=== PATIENT | female | born 1965 ===

== ENCOUNTER 2019-06-02 04:24 | Inpatient (IN) ==
[~2019-06-02 04:24] MED LIST: HEPARIN/NACL 0.9% 2 UNITS/ML 1,000 ML IV ONE; LIDOCAINE 1% 20 ML VIAL ONE; MIDAZOLAM 2 MG/2 ML VIAL ONE; fentaNYL 100 MCG/2 ML VIAL ONE
[2019-06-02] MEDS ORDERED: ENOXAPARIN 60 MG/0.6 ML SYRINGE ONE (04:34)
[2019-06-02] MEDS ORDERED: TIROFIBAN 5,000 MCG/100 ML PREMIX IV ONE (04:51)
[2019-06-02] MEDS ORDERED: TIROFIBAN 5,000 MCG/100 ML PREMIX IV SCH ×2 (04:56→05:30)
[2019-06-02] MEDS ORDERED: ZALEPLON 5 MG CAPSULE PO PRN (05:10)
[2019-06-02] MEDS ORDERED: ONDANSETRON 4 MG/2 ML VIAL IV PRN (05:10)
[2019-06-02] MEDS ORDERED: MORPHINE 4 MG/1 ML VIAL IV PRN (05:10)
[2019-06-02] MEDS ORDERED: NITROGLYCERIN SL 0.4 MG TABLET SL PRN (05:10)
[2019-06-02] MEDS ORDERED: ACETAMINOPHEN 325 MG TABLET PO PRN (05:10)
[2019-06-02] MEDS ORDERED: GLUCAGON 1 MG VIAL IM PRN (05:28)
[2019-06-02] MEDS ORDERED: DEXTROSE 50% 25 GM/50 ML VIAL IV PRN (05:28)
[2019-06-02] MEDS ORDERED: SODIUM CHLORIDE 0.9% 1,000 ML IV SCH ×2 (05:30→17:30)
[2019-06-02 06:23] LABS: Basophils % 0.4 % (0.0-0.8); Eosinophils # 0.1 10*3/uL (0.0-0.87); Eosinophils % 1.7 % (0.00-10.9); Hematocrit 34.3 VOL% (35.7-47.0); Hemoglobin 11.5 GM/DL (12.0-16.0); Immature Granulocytes % 0.6 %; Immature Granulocytes Absolute 0.05 #; Lymphocytes # 2.7 10*3/uL (1.4-4.0); Lymphocytes % 33.4 % (21.3-54.2); Mean Corpuscular HGB Conc 33.5 GM/DL (32-36); Mean Corpuscular Volume 91.2 FL (87-102); Monocytes % 8.4 % (1.7-12.7); Neutrophils % 55.5 % (38.7-73.9); Platelet Count 206 T/CUMM (130-400); Red Blood Count 3.76 MC/CUMM (3.8-5.5); White Blood Count 8.2 T/CUMM (4-12)
[2019-06-02] MEDS: hydrALAZINE 20 MG/1 ML VIAL IV PRN ×2 (06:40→11:53)
[2019-06-02 07:16] LABS: Risk Ratio 3.92; VLDL CHOLESTEROL 25.8 MG/DL
[2019-06-02] MEDS: CARVEDILOL 3.125 MG TABLET PO SCH ×2 (08:09→17:16)
[2019-06-02] MEDS: PANTOPRAZOLE 40 MG TABLET PO SCH (08:09)
[2019-06-02] MEDS: ASPIRIN EC 81 MG TABLET PO SCH (08:09)
[2019-06-02] MEDS: INSULIN REGULAR 100 UNIT/ML SUBCUT SCH ×4 (08:09→21:50)
[2019-06-02 08:43] LABS: Calcium 8.3 MG/DL (8.5-10.1); Osmolality,Calculated 286.5 MOS/KG (273-304)
[2019-06-02] MEDS ORDERED: LOSARTAN 25 MG TABLET PO SCH (09:00)
[2019-06-02 11:53] LABS: PT Patient Result 10.6 SECS
[2019-06-02] MEDS ORDERED: NITROGLYCERIN DRIP 50 MG/250 ML BOTTLE IV PRN (11:54)
[2019-06-02] MEDS: HEPARIN DRIP 25,000 UNITS/500 ML PREMIX IV SCH (12:30)
[2019-06-02 12:34] LABS: Apearance,Urine CLEAR (Clear); Bilirubin,Urine Negative (Negative); Blood, Urine Small mg/dL (Negative); Glucose,Urine (UA) >=500 mg/dL (Negative); Ketones,Urine Negative (Negative); Mucus,Urine Occasional /LPF (Occasional); Nitrite,Urine Negative (Negative); Protein,Urine 100 MG/DL; RBC,Urine 3 /HPF (0-4); Squamous Epithelial Cell,Urine Occasional /HPF (0-10); Urine Color Straw (Yellow); Urine Urobilinogen < 2.0 EU/DL (0.2-1.0); WBC,Urine <1 /HPF (0-6)
[2019-06-02] MEDS: CHLORHEXIDINE 4% SOLN 118 ML BOTTLE TOP SCH ×2 (16:17→21:22)
[2019-06-02] MEDS ORDERED: ATORVASTATIN 80 MG TABLET PO SCH (21:00)
[2019-06-02] MEDS: SODIUM CHLORIDE 0.9% 1,000 ML IV SCH (21:22)
[2019-06-02] MEDS ORDERED: DIAZEPAM 5 MG TABLET PO PRN (21:28)
[2019-06-02] MEDS: CHLORHEXIDINE 0.12% ORAL RINSE 60 ML BOTTLE SWISH/SPIT SCH (21:50)
[2019-06-03] MEDS ORDERED: PAPAVERINE 60 MG/2 ML VIAL ONE (05:43)
[2019-06-03] MEDS ORDERED: VANCOMYCIN 1,000 MG VIAL ONE (05:44)
[2019-06-03] MEDS ORDERED: TISSUE ADHESIVE 1 EACH APPLICATOR TOP ONE (05:44)
[2019-06-03] MEDS: CHLORHEXIDINE 4% SOLN 118 ML BOTTLE TOP SCH ×2 (05:45→09:03)
[2019-06-03 05:49] LABS: Basophils % 0.3 % (0.0-0.8); Eosinophils # 0.1 10*3/uL (0.0-0.87); Eosinophils % 1.1 % (0.00-10.9); Hematocrit 32.8 VOL% (35.7-47.0); Immature Granulocytes % 0.1 %; Immature Granulocytes Absolute 0.01 #; Lymphocytes # 2.6 10*3/uL (1.4-4.0); Lymphocytes % 34.7 % (21.3-54.2); Mean Corpuscular HGB Conc 33.5 GM/DL (32-36); Mean Corpuscular Volume 92.1 FL (87-102); Mean Platelet Volume 10.6 FL (9.6-12.0); Monocytes % 8.7 % (1.7-12.7); Neutrophils % 55.1 % (38.7-73.9); Platelet Count 190 T/CUMM (130-400); Red Blood Count 3.56 MC/CUMM (3.8-5.5); Red Cell Distribution Width 12.5 % (9.3-17.3); White Blood Count 7.6 T/CUMM (4-12)
[2019-06-03] MEDS ORDERED: CEFUROXIME INJ 1,500 MG in SYRINGE 1 EACH IV ONE (06:00)
[2019-06-03 06:23] LABS: Calcium 8.3 MG/DL (8.5-10.1); Osmolality,Calculated 284.3 MOS/KG (273-304)
[2019-06-03] MEDS ORDERED: METOPROLOL TARTRATE 5 MG/5 ML VIAL IV ONE ×2 (06:56→06:58)
[2019-06-03] MEDS: hydrALAZINE 20 MG/1 ML VIAL IV PRN (06:58)
[2019-06-03] MEDS ORDERED: DIAZEPAM 5 MG TABLET PO ONE (08:00)
[2019-06-03] MEDS ORDERED: FAMOTIDINE 20 MG TABLET PO ONE (08:00)
[2019-06-03] MEDS: INSULIN REGULAR 100 UNIT/ML SUBCUT SCH ×2 (09:00→16:41)
[2019-06-03] MEDS: CARVEDILOL 3.125 MG TABLET PO SCH (09:03)
[2019-06-03] MEDS: ASPIRIN EC 81 MG TABLET PO SCH (09:03)
[2019-06-03] MEDS: PANTOPRAZOLE 40 MG TABLET PO SCH (09:03)
[2019-06-03] MEDS: CHLORHEXIDINE 0.12% ORAL RINSE 60 ML BOTTLE SWISH/SPIT SCH ×2 (09:04→22:02)
[2019-06-03 11:50] LABS: ABG Base Excess -0.5 MMOL/L (-2.5-2.5); ABG PH 7.458 (7.35-7.45); ABG TCO2 20.2 MMOL/L (23-27); Glucose Heart Surgery 251 MG/DL (74-106); Hematocrit Heart Surgery 33.8 PERCENT (37-47); Hemoglobin Heart Surgery 10.9 G/DL (12.0-16.0); Ionized Calcium Arterial 1.13 MMOL/L (1.21-1.46); PH Patient Temp Arterial 7.458; Patient Temperature 37 CELCIUS; Potassium Heart/CVR 3.4 MMOL/L (3.5-5.1); Sodium Heart/CVR 138 MMOL/L (135-145)
[2019-06-03] MEDS ORDERED: INSULIN REGULAR 100 UNIT/ML ONE (12:01)
[2019-06-03 13:07] LABS: Hemoglobin Heart Surgery 6.8 G/DL (12.0-16.0); PCO2 Patient Temp Venous 27.4 MM HG; PH Patient Temp Venous 7.521; PO2 Patient Temp Venous 49.7 MM HG; VBG Base Excess -0.7 MEQ/L (0-4); VBG HCO3 21.9 MEQ/L (24-28); VBG Oxygen Saturation 83.6 %; VBG PCO2 27.4 MMHG (41-51); VBG PH 7.521; VBG PO2 49.7 MMHG (17-40)
[2019-06-03] MEDS ORDERED: EPINEPHrine 1 MG/10 ML SYRINGE ONE (13:36)
[2019-06-03] MEDS ORDERED: ALBUMIN 5% 12.5 GM/250 ML VIAL IV ONE (13:36)
[2019-06-03] MEDS ORDERED: PHENYLEPHRINE DRIP 0 MG/0 ML PREMIX IV ONE (13:36)
[2019-06-03] MEDS ORDERED: ATROPINE 1 MG/10 ML SYRINGE ONE (13:37)
[2019-06-03] MEDS ORDERED: POTASSIUM CHLORIDE RIDER 100 ML IV ONE (13:37)
[2019-06-03] MEDS ORDERED: LIDOCAINE 100 MG/5 ML SYRINGE ONE (13:37)
[2019-06-03 13:40] LABS: Glucose Heart Surgery 315 MG/DL (74-106); PCO2 Patient Temp Venous 31.4 MM HG; PH Patient Temp Venous 7.527; PO2 Patient Temp Venous 58.3 MM HG; Patient Temperature 37 CELCIUS; Potassium Heart/CVR 3.5 MMOL/L (3.5-5.1); Sodium Heart/CVR 131 MMOL/L (135-145); VBG Base Excess 2.6 MEQ/L (0-4); VBG HCO3 25.5 MEQ/L (24-28); VBG Oxygen Saturation 88.9 %; VBG PCO2 31.4 MMHG (41-51); VBG PH 7.527; VBG PO2 58.3 MMHG (17-40)
[2019-06-03] MEDS ORDERED: SODIUM BICARBONATE 50 MEQ/50 ML VIAL IV ONE (14:21)
[2019-06-03] MEDS ORDERED: methylPREDNISolone SOD SUC 1,000 MG/8 ML VIAL ONE (14:21)
[2019-06-03] MEDS ORDERED: ALBUMIN 25% 25 GM/100 ML VIAL IV ONE (14:21)
[2019-06-03] MEDS ORDERED: MAGNESIUM SULFATE 5 GM/10 ML VIAL IV ONE (14:21)
[2019-06-03] MEDS ORDERED: HEPARIN 10,000 UNIT/10 ML VIAL ONE (14:21)
[2019-06-03] MEDS ORDERED: PROTAMINE SULFATE 250 MG/25 ML VIAL IV ONE (14:21)
[2019-06-03] MEDS ORDERED: DEXTROSE 5% KCL 20 MEQ 20 MEQ/1,000 ML BAG IV ONE (14:21)
[2019-06-03] MEDS ORDERED: MANNITOL 12.5 GM/50 ML VIAL IV ONE (14:22)
[2019-06-03] MEDS ORDERED: FUROSEMIDE 20 MG/2 ML VIAL ONE (14:22)
[2019-06-03] MEDS ORDERED: PROTAMINE SULFATE 50 MG/5 ML VIAL IV ONE (14:22)
[2019-06-03] MEDS ORDERED: THROMBIN TOPICAL (RECOMBINANT) 5,000 UNIT VIAL TOP ONE (14:27)
[2019-06-03 14:41] LABS: ABG Base Excess 0.5 MMOL/L (-2.5-2.5); ABG HCO3 21.4 MMOL/L (20-26); ABG Oxygen Saturation 98.7 % (95-100); ABG PCO2 22.8 MM HG (35-48); ABG PO2 303.1 MM HG (80-95); ABG TCO2 22.1 MMOL/L (23-27); Glucose Heart Surgery 330 MG/DL (74-106); Hemoglobin Heart Surgery 8.9 G/DL (12.0-16.0); Ionized Calcium Arterial 1.26 MMOL/L (1.21-1.46); PCO2 Patient Temp Arterial 22.8 MMHG; PH Patient Temp Arterial 7.591; PO2 Patient Temp Arterial 303.1 MM HG; Patient Temperature 37 CELCIUS; Potassium Heart/CVR 3.5 MMOL/L (3.5-5.1); Sodium Heart/CVR 133 MMOL/L (135-145)
[2019-06-03 14:50] LABS: ABG PH 7.591 (7.35-7.45)
[2019-06-03] MEDS: SODIUM CHLORIDE 0.45% 1,000 ML IV SCH (15:30)
[2019-06-03] MEDS ORDERED: CALCIUM CHLORIDE 1,000 MG/10 ML VIAL IV ONE (15:51)
[2019-06-03] MEDS ORDERED: SUFentanil 250 MCG/5 ML AMP ONE (15:51)
[2019-06-03] MEDS ORDERED: PHENYLEPHRINE DRIP 20 MG/250 ML PREMIX IV ONE (15:51)
[2019-06-03] MEDS ORDERED: HEPARIN/NACL 0.9% 2 UNITS/ML 500 ML IV ONE (15:51)
[2019-06-03] MEDS ORDERED: ePHEDrine 50 MG/ML AMP ONE (15:52)
[2019-06-03] MEDS ORDERED: ETOMIDATE 40 MG/20 ML VIAL IV ONE (15:52)
[2019-06-03] MEDS ORDERED: MIDAZOLAM 10 MG/2 ML VIAL ONE (15:52)
[2019-06-03] MEDS ORDERED: AMINOCAPROIC ACID 5,000 MG/20 ML VIAL ONE (15:52)
[2019-06-03] MEDS ORDERED: NITROGLYCERIN DRIP 50 MG/250 ML BOTTLE IV ONE (15:52)
[2019-06-03] MEDS ORDERED: DEXTROSE 50% 25 GM/50 ML VIAL IV PRN ×2 (15:53)
[2019-06-03] MEDS ORDERED: SODIUM CHLORIDE 0.9% 250 ML IV PRN (15:53)
[2019-06-03] MEDS ORDERED: MAGNESIUM SULF RIDER 4 GM in PREMIX 1 EACH IV PRN (15:53)
[2019-06-03] MEDS ORDERED: ACETAMINOPHEN 650 MG SUPP RECTAL PRN (15:53)
[2019-06-03] MEDS ORDERED: MIDAZOLAM 2 MG/2 ML VIAL IV PRN (15:53)
[2019-06-03] MEDS ORDERED: CHLORHEXIDINE 4% SOLN 118 ML BOTTLE TOP PRN (15:53)
[2019-06-03] MEDS ORDERED: CALCIUM CHLORIDE 1,000 MG/10 ML SYRINGE IV PRN (15:53)
[2019-06-03] MEDS ORDERED: SODIUM CHLORIDE 0.45% 1,000 ML IV SCH (15:53)
[2019-06-03] MEDS ORDERED: MORPHINE 10 MG/1 ML VIAL IV PRN (15:53)
[2019-06-03] MEDS ORDERED: INSULIN REGULAR DRIP 100 ML IV SCH (15:53)
[2019-06-03] MEDS: ALBUMIN 5% 12.5 GM in PREMIX 1 EACH IV PRN ×4 (16:16→17:41)
[2019-06-03 16:18] LABS: ABG Base Excess -0.2 MMOL/L (-2.5-2.5); ABG HCO3 24.2 MMOL/L (20-26); ABG Oxygen Saturation 98.5 % (95-100); ABG PCO2 29.8 MM HG (35-48); ABG PH 7.483 (7.35-7.45); ABG TCO2 19.9 MMOL/L (23-27); Glucose Heart Surgery 346 MG/DL (74-106); Hematocrit Heart Surgery 34.4 PERCENT (37-47); Hemoglobin Heart Surgery 11.2 G/DL (12.0-16.0); Potassium Heart/CVR 3.2 MMOL/L (3.5-5.1)
[2019-06-03 16:20] LABS: Basophils % 0.2 % (0.0-0.8); Eosinophils % 0.3 % (0.00-10.9); Hematocrit 31.2 VOL% (35.7-47.0); Hemoglobin 10.4 GM/DL (12.0-16.0); Immature Granulocytes % 0.7 %; Immature Granulocytes Absolute 0.06 #; Lymphocytes % 10.8 % (21.3-54.2); Mean Corpuscular HGB Conc 33.3 GM/DL (32-36); Mean Corpuscular Volume 92.6 FL (87-102); Mean Platelet Volume 10.2 FL (9.6-12.0); Monocytes % 4.1 % (1.7-12.7); Neutrophils % 83.9 % (38.7-73.9); Platelet Count 112 T/CUMM (130-400); Red Blood Count 3.37 MC/CUMM (3.8-5.5); Red Cell Distribution Width 12.4 % (9.3-17.3); White Blood Count 9.1 T/CUMM (4-12)
[2019-06-03] MEDS: POTASSIUM CHLORIDE RIDER 20 MEQ in PREMIX 1 EACH IV PRN ×3 (16:27→18:23)
[2019-06-03 16:31] LABS: INR 1.1; PT Patient Result 12.3 SECS; Partial Thromboplastin Time 25.2 SECS (0-40)
[2019-06-03] MEDS ORDERED: ASPIRIN CHEW 81 MG TABLET PO ONE (16:33)
[2019-06-03] MEDS ORDERED: SODIUM CHLORIDE 0.9% 1,000 ML IV PRN (16:36)
[2019-06-03] MEDS: HEPARIN DRIP 25,000 UNITS/500 ML PREMIX IV SCH (16:40)
[2019-06-03] MEDS: SODIUM CHLORIDE 0.9% 1,000 ML IV SCH (16:41)
[2019-06-03 16:42] LABS: Blood Urea Nitrogen 15 MG/DL (7-18); Calcium 8.9 MG/DL (8.5-10.1); Glucose 335 MG/DL (74-106)
[2019-06-03] MEDS: LACTATED RINGERS 1,000 ML IV PRN ×3 (16:54→18:24)
[2019-06-03] MEDS: MAGNESIUM SULF RIDER 2 GM in PREMIX 1 EACH IV PRN (17:36)
[2019-06-03 18:13] LABS: ABG Base Excess -0.1 MMOL/L (-2.5-2.5); ABG HCO3 24.3 MMOL/L (20-26); ABG Oxygen Saturation 99.4 % (95-100); ABG PCO2 26.7 MM HG (35-48); ABG PH 7.524 (7.35-7.45); ABG TCO2 20.4 MMOL/L (23-27); Glucose Heart Surgery 294 MG/DL (74-106); Hematocrit Heart Surgery 25.8 PERCENT (37-47); Hemoglobin Heart Surgery 8.3 G/DL (12.0-16.0); Potassium Heart/CVR 3.8 MMOL/L (3.5-5.1)
[2019-06-03] MEDS: INSULIN REGULAR 100 UNIT/ML IV PRN ×2 (18:18→20:15)
[2019-06-03] MEDS: POTASSIUM CHLORIDE RIDER 10 MEQ in PREMIX 1 EACH IV PRN (18:49)
[2019-06-03] MEDS: CEFUROXIME INJ 1,500 MG in SYRINGE 1 EACH IV SCH (23:19)
[2019-06-04] MEDS: INSULIN REGULAR 100 UNIT/ML IV PRN (00:09)
[2019-06-04] MEDS: MORPHINE 4 MG/1 ML VIAL IV PRN ×4 (00:36→15:10)
[2019-06-04 04:03] LABS: ABG Base Excess 0.1 MMOL/L (-2.5-2.5); ABG HCO3 24.6 MMOL/L (20-26); ABG Oxygen Saturation 98.9 % (95-100); ABG PCO2 40.1 MM HG (35-48); ABG TCO2 22.6 MMOL/L (23-27); Glucose Heart Surgery 121 MG/DL (74-106); Hematocrit Heart Surgery 31.2 PERCENT (37-47); Hemoglobin Heart Surgery 10.1 G/DL (12.0-16.0); Potassium Heart/CVR 3.4 MMOL/L (3.5-5.1)
[2019-06-04 04:12] LABS: Basophils % 0.2 % (0.0-0.8); Hematocrit 24.4 VOL% (35.7-47.0); Immature Granulocytes % 0.5 %; Immature Granulocytes Absolute 0.07 #; Lymphocytes # 0.6 10*3/uL (1.4-4.0); Lymphocytes % 4.7 % (21.3-54.2); Mean Corpuscular HGB Conc 32.8 GM/DL (32-36); Mean Corpuscular Volume 93.1 FL (87-102); Mean Platelet Volume 10.6 FL (9.6-12.0); Monocytes % 4.7 % (1.7-12.7); Neutrophils % 89.9 % (38.7-73.9); Platelet Count 105 T/CUMM (130-400); Red Blood Count 2.62 MC/CUMM (3.8-5.5); Red Cell Distribution Width 12.6 % (9.3-17.3); White Blood Count 12.9 T/CUMM (4-12)
[2019-06-04 04:29] LABS: Band Neutrophils 6 % (0-10); Hypochromasia Slight; Lymphocytes 6 % (20-55); Platelet Estimate Decreased; Segmented Neutrophils 83 % (50-85); Total Cells Counted 100
[2019-06-04 04:30] LABS: Calcium 7.9 MG/DL (8.5-10.1); Osmolality,Calculated 286.8 MOS/KG (273-304)
[2019-06-04] MEDS: SODIUM CHLORIDE 0.45% 1,000 ML IV SCH (04:47)
[2019-06-04] MEDS: POTASSIUM CHLORIDE RIDER 20 MEQ in PREMIX 1 EACH IV PRN ×2 (04:51→05:20)
[2019-06-04] MEDS: MAGNESIUM SULF RIDER 2 GM in PREMIX 1 EACH IV PRN (04:51)
[2019-06-04] MEDS ORDERED: GLUCAGON 1 MG VIAL IM PRN (07:19)
[2019-06-04] MEDS ORDERED: INSULIN REGULAR 100 UNIT/ML SUBCUT SCH (08:00)
[2019-06-04] MEDS: METOPROLOL TARTRATE 25 MG TABLET PO SCH ×2 (08:21→20:57)
[2019-06-04] MEDS: CLOPIDOGREL 75 MG TABLET PO SCH (08:21)
[2019-06-04] MEDS: NICOTINE 14 MG/24 HR PATCH TRANSDERM SCH (08:21)
[2019-06-04] MEDS: PANTOPRAZOLE 40 MG VIAL IV SCH (08:22)
[2019-06-04] MEDS: CHLORHEXIDINE 0.12% ORAL RINSE 60 ML BOTTLE SWISH/SPIT SCH ×2 (08:24→21:02)
[2019-06-04] MEDS: INSULIN REGULAR 100 UNIT/ML SUBCUT SCH ×4 (10:45→22:21)
[2019-06-04] MEDS: CEFUROXIME INJ 1,500 MG in SYRINGE 1 EACH IV SCH ×2 (12:40→22:22)
[2019-06-04] MEDS: ASPIRIN EC 325 MG TABLET PO SCH (14:58)
[2019-06-04] MEDS: FUROSEMIDE 40 MG TABLET PO SCH (14:58)
[2019-06-04] MEDS ORDERED: ATORVASTATIN 40 MG TABLET PO SCH (15:14)
[2019-06-04] MEDS: ONDANSETRON 4 MG/2 ML VIAL IV PRN (18:00)
[2019-06-04] MEDS: ATORVASTATIN 80 MG TABLET PO SCH (20:58)
[2019-06-05] MEDS: INSULIN REGULAR 100 UNIT/ML SUBCUT SCH ×6 (01:09→20:17)
[2019-06-05 04:52] LABS: Basophils % 0.1 % (0.0-0.8); Hematocrit 22.6 VOL% (35.7-47.0); Hemoglobin 7.2 GM/DL (12.0-16.0); Immature Granulocytes % 0.9 %; Immature Granulocytes Absolute 0.13 #; Lymphocytes # 1.2 10*3/uL (1.4-4.0); Lymphocytes % 8.8 % (21.3-54.2); Mean Corpuscular HGB Conc 31.9 GM/DL (32-36); Mean Corpuscular Volume 95.8 FL (87-102); Mean Platelet Volume 11.4 FL (9.6-12.0); Monocytes % 6.6 % (1.7-12.7); Neutrophils % 83.6 % (38.7-73.9); Platelet Count 104 T/CUMM (130-400); Red Blood Count 2.36 MC/CUMM (3.8-5.5); Red Cell Distribution Width 12.9 % (9.3-17.3)
[2019-06-05 04:58] LABS: Calcium 7.9 MG/DL (8.5-10.1); Osmolality,Calculated 285.5 MOS/KG (273-304)
[2019-06-05] MEDS ORDERED: SODIUM CHLORIDE 0.9% 1,000 ML IV PRN (07:42)
[2019-06-05] MEDS ORDERED: FUROSEMIDE 40 MG/4 ML VIAL IV ONE (07:43)
[2019-06-05] MEDS: PANTOPRAZOLE 40 MG VIAL IV SCH (08:11)
[2019-06-05] MEDS: METOPROLOL TARTRATE 25 MG TABLET PO SCH ×2 (08:11→21:34)
[2019-06-05] MEDS: FUROSEMIDE 40 MG TABLET PO SCH (08:11)
[2019-06-05] MEDS: NICOTINE 14 MG/24 HR PATCH TRANSDERM SCH (08:11)
[2019-06-05] MEDS: ASPIRIN EC 325 MG TABLET PO SCH (08:11)
[2019-06-05] MEDS: CLOPIDOGREL 75 MG TABLET PO SCH (08:11)
[2019-06-05] MEDS: CHLORHEXIDINE 0.12% ORAL RINSE 60 ML BOTTLE SWISH/SPIT SCH ×2 (09:34→21:42)
[2019-06-05] MEDS: glyBURIDE/METFORMIN 5-500 MG TABLET PO SCH (17:00)
[2019-06-05] MEDS: ATORVASTATIN 80 MG TABLET PO SCH (21:34)
[2019-06-05] MEDS: ASCORBIC ACID 500 MG TABLET PO SCH (21:34)
[2019-06-06] MEDS: INSULIN REGULAR 100 UNIT/ML SUBCUT SCH ×6 (00:41→21:42)
[2019-06-06 05:21] LABS: Basophils % 0.2 % (0.0-0.8); Hematocrit 31.3 VOL% (35.7-47.0); Hemoglobin 10.4 GM/DL (12.0-16.0); Immature Granulocytes % 0.4 %; Immature Granulocytes Absolute 0.05 #; Lymphocytes # 1.5 10*3/uL (1.4-4.0); Lymphocytes % 11.6 % (21.3-54.2); Mean Corpuscular HGB Conc 33.2 GM/DL (32-36); Mean Corpuscular Volume 89.4 FL (87-102); Mean Platelet Volume 11.5 FL (9.6-12.0); Monocytes % 7.9 % (1.7-12.7); Neutrophils % 79.9 % (38.7-73.9); Platelet Count 124 T/CUMM (130-400); Red Cell Distribution Width 13.9 % (9.3-17.3); White Blood Count 13.3 T/CUMM (4-12)
[2019-06-06 06:03] LABS: Calcium 8.2 MG/DL (8.5-10.1); Osmolality,Calculated 280.7 MOS/KG (273-304)
[2019-06-06] MEDS: CHLORHEXIDINE 0.12% ORAL RINSE 60 ML BOTTLE SWISH/SPIT SCH ×2 (09:30→21:51)
[2019-06-06] MEDS: glyBURIDE/METFORMIN 5-500 MG TABLET PO SCH ×2 (09:31→18:14)
[2019-06-06] MEDS: NICOTINE 14 MG/24 HR PATCH TRANSDERM SCH (09:31)
[2019-06-06] MEDS: ASPIRIN EC 325 MG TABLET PO SCH (09:31)
[2019-06-06] MEDS: ASCORBIC ACID 500 MG TABLET PO SCH ×2 (09:32→21:40)
[2019-06-06] MEDS: FUROSEMIDE 40 MG TABLET PO SCH (09:32)
[2019-06-06] MEDS: CLOPIDOGREL 75 MG TABLET PO SCH (09:32)
[2019-06-06] MEDS: PANTOPRAZOLE 40 MG VIAL IV SCH (09:33)
[2019-06-06] MEDS: METOPROLOL TARTRATE 25 MG TABLET PO SCH ×2 (09:33→21:39)
[2019-06-06] MEDS: ONDANSETRON 4 MG/2 ML VIAL IV PRN (20:19)
[2019-06-06] MEDS: ATORVASTATIN 80 MG TABLET PO SCH (21:39)
[2019-06-07] MEDS: INSULIN REGULAR 100 UNIT/ML SUBCUT SCH ×6 (02:15→21:24)
[2019-06-07 05:08] LABS: Basophils % 0.2 % (0.0-0.8); Eosinophils # 0.1 10*3/uL (0.0-0.87); Eosinophils % 0.5 % (0.00-10.9); Hematocrit 35.2 VOL% (35.7-47.0); Hemoglobin 11.5 GM/DL (12.0-16.0); Immature Granulocytes % 0.6 %; Immature Granulocytes Absolute 0.06 #; Lymphocytes # 2.3 10*3/uL (1.4-4.0); Lymphocytes % 21.9 % (21.3-54.2); Mean Corpuscular HGB Conc 32.7 GM/DL (32-36); Mean Corpuscular Volume 90.5 FL (87-102); Mean Platelet Volume 10.2 FL (9.6-12.0); Monocytes % 9.4 % (1.7-12.7); Neutrophils % 67.4 % (38.7-73.9); Platelet Count 166 T/CUMM (130-400); Red Blood Count 3.89 MC/CUMM (3.8-5.5); Red Cell Distribution Width 13.5 % (9.3-17.3); White Blood Count 10.3 T/CUMM (4-12)
[2019-06-07 05:23] LABS: Calcium 8.5 MG/DL (8.5-10.1); Osmolality,Calculated 286.1 MOS/KG (273-304)
[2019-06-07] MEDS: POTASSIUM CHLORIDE RIDER 10 MEQ in PREMIX 1 EACH IV PRN ×3 (06:35→08:40)
[2019-06-07] MEDS: ASCORBIC ACID 500 MG TABLET PO SCH ×2 (08:36→21:07)
[2019-06-07] MEDS: ASPIRIN EC 325 MG TABLET PO SCH (08:37)
[2019-06-07] MEDS: glyBURIDE/METFORMIN 5-500 MG TABLET PO SCH ×2 (08:37→17:25)
[2019-06-07] MEDS: FUROSEMIDE 40 MG TABLET PO SCH (08:37)
[2019-06-07] MEDS: CLOPIDOGREL 75 MG TABLET PO SCH (08:38)
[2019-06-07] MEDS: METOPROLOL TARTRATE 25 MG TABLET PO SCH ×2 (08:38→21:07)
[2019-06-07] MEDS: NICOTINE 14 MG/24 HR PATCH TRANSDERM SCH (08:38)
[2019-06-07] MEDS: PANTOPRAZOLE 40 MG VIAL IV SCH (08:39)
[2019-06-07] MEDS: CHLORHEXIDINE 0.12% ORAL RINSE 60 ML BOTTLE SWISH/SPIT SCH ×2 (08:47→21:07)
[2019-06-07] MEDS: ONDANSETRON 4 MG/2 ML VIAL IV PRN (19:23)
[2019-06-07] MEDS: ATORVASTATIN 80 MG TABLET PO SCH (21:07)
[2019-06-08] MEDS: INSULIN REGULAR 100 UNIT/ML SUBCUT SCH ×6 (01:17→21:33)
[2019-06-08] MEDS: MORPHINE 4 MG/1 ML VIAL IV PRN (03:39)
[2019-06-08] MEDS: ONDANSETRON 4 MG/2 ML VIAL IV PRN ×2 (03:39→18:16)
[2019-06-08 05:39] LABS: Basophils % 0.2 % (0.0-0.8); Eosinophils # 0.1 10*3/uL (0.0-0.87); Eosinophils % 1.2 % (0.00-10.9); Hematocrit 36.5 VOL% (35.7-47.0); Hemoglobin 11.9 GM/DL (12.0-16.0); Immature Granulocytes % 0.7 %; Immature Granulocytes Absolute 0.06 #; Lymphocytes # 1.9 10*3/uL (1.4-4.0); Lymphocytes % 21.7 % (21.3-54.2); Mean Corpuscular HGB Conc 32.6 GM/DL (32-36); Mean Corpuscular Volume 91.7 FL (87-102); Monocytes % 9.9 % (1.7-12.7); Neutrophils % 66.3 % (38.7-73.9); Platelet Count 197 T/CUMM (130-400); Red Blood Count 3.98 MC/CUMM (3.8-5.5); Red Cell Distribution Width 13.2 % (9.3-17.3); White Blood Count 8.7 T/CUMM (4-12)
[2019-06-08 06:42] LABS: Anisocytosis 1+; Band Neutrophils 1 % (0-10); Lymphocytes 23 % (20-55); Segmented Neutrophils 72 % (50-85); Total Cells Counted 100
[2019-06-08 06:43] LABS: Calcium 8.2 MG/DL (8.5-10.1); Osmolality,Calculated 279.5 MOS/KG (273-304); Platelet Estimate Adequate
[2019-06-08] MEDS: ASCORBIC ACID 500 MG TABLET PO SCH ×2 (08:28→21:32)
[2019-06-08] MEDS: FUROSEMIDE 40 MG TABLET PO SCH (08:28)
[2019-06-08] MEDS: ASPIRIN EC 325 MG TABLET PO SCH (08:28)
[2019-06-08] MEDS: glyBURIDE/METFORMIN 5-500 MG TABLET PO SCH ×2 (08:28→17:22)
[2019-06-08] MEDS: METOPROLOL TARTRATE 25 MG TABLET PO SCH ×2 (08:29→21:32)
[2019-06-08] MEDS: CLOPIDOGREL 75 MG TABLET PO SCH (08:29)
[2019-06-08] MEDS: NICOTINE 14 MG/24 HR PATCH TRANSDERM SCH (08:29)
[2019-06-08] MEDS: PANTOPRAZOLE 40 MG VIAL IV SCH (08:29)
[2019-06-08] MEDS: CHLORHEXIDINE 0.12% ORAL RINSE 60 ML BOTTLE SWISH/SPIT SCH ×2 (08:29→21:37)
[2019-06-08] MEDS ORDERED: MAGNESIUM HYDROXIDE SUSP 30 ML UDCUP PO ONE (18:28)
[2019-06-08] MEDS: ATORVASTATIN 80 MG TABLET PO SCH (21:32)
[2019-06-09 05:07] LABS: Basophils % 0.2 % (0.0-0.8); Eosinophils # 0.2 10*3/uL (0.0-0.87); Eosinophils % 1.6 % (0.00-10.9); Hematocrit 35.9 VOL% (35.7-47.0); Hemoglobin 11.8 GM/DL (12.0-16.0); Immature Granulocytes % 0.8 %; Immature Granulocytes Absolute 0.07 #; Lymphocytes # 2.5 10*3/uL (1.4-4.0); Lymphocytes % 27.1 % (21.3-54.2); Mean Corpuscular HGB Conc 32.9 GM/DL (32-36); Mean Corpuscular Volume 90.7 FL (87-102); Mean Platelet Volume 9.9 FL (9.6-12.0); Monocytes % 10.7 % (1.7-12.7); Neutrophils % 59.6 % (38.7-73.9); Platelet Count 237 T/CUMM (130-400); Red Blood Count 3.96 MC/CUMM (3.8-5.5); White Blood Count 9.3 T/CUMM (4-12)
[2019-06-09 05:33] LABS: Eosinophils 1 % (0-10); Lymphocytes 24 % (20-55); Segmented Neutrophils 64 % (50-85); Total Cells Counted 100
[2019-06-09 05:34] LABS: Atypical Lymphocytes Few; Hypochromasia 1+
[2019-06-09 05:35] LABS: Platelet Estimate Normal
[2019-06-09 05:43] LABS: Calcium 8.4 MG/DL (8.5-10.1); Osmolality,Calculated 283.3 MOS/KG (273-304)
[2019-06-09] MEDS: CHLORHEXIDINE 0.12% ORAL RINSE 60 ML BOTTLE SWISH/SPIT SCH (09:37)
[2019-06-09] MEDS: PANTOPRAZOLE 40 MG VIAL IV SCH (09:39)
[2019-06-09] MEDS: METOPROLOL TARTRATE 25 MG TABLET PO SCH (09:39)
[2019-06-09] MEDS: ASPIRIN EC 325 MG TABLET PO SCH (09:39)
[2019-06-09] MEDS: FUROSEMIDE 40 MG TABLET PO SCH (09:39)
[2019-06-09] MEDS: CLOPIDOGREL 75 MG TABLET PO SCH (09:39)
[2019-06-09] MEDS: NICOTINE 14 MG/24 HR PATCH TRANSDERM SCH (09:40)
[2019-06-09] MEDS: glyBURIDE/METFORMIN 5-500 MG TABLET PO SCH (09:40)
[2019-06-09] MEDS: ASCORBIC ACID 500 MG TABLET PO SCH (09:40)
[2019-06-09] MEDS: INSULIN REGULAR 100 UNIT/ML SUBCUT SCH ×2 (09:56→12:05)
[2019-06-09 12:50] VITALS: BP 121/77
== END 2019-06-09 14:00 | disposition home health service (06) | DRG 234 ==
LOC: N.ICU 04:24 → N.CL 04:24 → N.ICU 05:54 → N.SDSINP 05:54 → N.CVR 06-03 10:35 → N.ICU 06-03 10:35 → N.CVR 06-03 15:55 → N.ICU 06-04 08:45 → N.TELES 06-05 11:48
PROVIDERS: ADMIT Internal Medicine Cardiovascular Disease; ATTEND Internal Medicine Cardiovascular Disease
PROC: CLCCHCL (ICD-10-PCS; 2019-06-02 04:45)